=== PATIENT | male | born 1965 | race Caucasian/White ===

== ENCOUNTER 2017-02-21 20:11 | Emergency (ER) | payer SELFPAY ==
[2017-02-21 20:34] VITALS: BP 169/108
[2017-02-21] MEDS ORDERED: Sodium Chloride 0.9% 1,000 ML IV ONE (20:47)
[2017-02-21] MEDS ORDERED: Ondansetron 4 MG/2 ML SDV IVPUSH ONE (20:47)
[2017-02-21] MEDS ORDERED: Sodium Chloride 0.9% 10 ML Syringe FLUSH PRN (20:47)
[2017-02-21] MEDS ORDERED: Ketorolac 30 MG/ML SDV IVPUSH ONE (20:47)
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
[2017-02-21] MEDS ORDERED: Acetaminophen 325 MG Tab PO ONE (21:40)
[2017-02-21] MEDS ORDERED: methylPREDNISolone Sodium Succinate 125 MG/2 ML SDV IVPUSH ONE (22:22)
--- NOTE | 2017-02-22 07:07 | CT ---
CT lumbar spine Technique: Multiple axial sections were obtained from the bottom of T9 inferiorly through the L5-S1 disc space. Reconstructed sagittal and coronal images were reviewed. Comparison: No previous lumbar spine imaging. T10-T11: Mild disc space narrowing is seen. Mild diffuse posterior disc space narrowing seen throughout the lumbar spine. Mild endplate irregularity seen superiorly within L3 which appears old. Circumferential disc bulge noted at L2-L3 which causes minimal central canal stenosis. Slight circumferential disc bulge noted at L3-L4 causing minimal central canal stenosis. Slight circumferential disc bulge noted at L4-L5. Possible small disc herniation to the left of midline is seen at L4-L5. Vacuum phenomena noted within the L5-S1 disc. No fracture is seen. No discrete neural foraminal stenosis is seen where the nerve roots exit. Impression: 1. Possible small disc herniation at L4-L5 to the left of midline. 2. Slight circumferential disc bulging at L2-L3 and L3-L4 causing minimal central canal stenosis. 3. Other incidental findings. No acute abnormality is identified. Diagnostic code #3 I agree with preliminary report issued by [facility] ([facility] preliminary report dictated on 02/21/17, 11:11 PM Central Time)
--- NOTE | 2017-02-22 07:08 | CT ---
CT abdomen and pelvis Technique: Multiple axial sections were obtained from above the dome of the diaphragm inferiorly through the pubic symphysis. Intravenous and oral contrast not utilized. Study has been performed as a ureteral stone protocol. Findings: Kidneys show no abnormal calcifications. No ureteral dilatation or ureteral stone is seen. No bladder calculi are seen. Visualized lung bases are clear. Liver and spleen have a normal noncontrast CT appearance. Adrenal glands show no nodule. Pancreas is within normal limits. Aorta shows no aneurysmal dilatation. Mild atherosclerotic calcification noted within the aorta and iliac vessels. Gallbladder is contracted with no calcified gallstones. No retroperitoneal adenopathy or mesenteric abnormalities are seen. Appendix is seen which appears normal. No pelvic mass or adenopathy is seen. Mild diverticulosis noted within the sigmoid and descending colon without inflammatory change. Mild increased stool is noted within the colon. Bone window settings were reviewed which show mild scattered degenerative change throughout the spine. Impression: 1. Mild increased stool within the colon. Other incidental findings. 2. Nothing acute is identified on noncontrast CT study of the abdomen and pelvis performed as a ureteral stone protocol. Diagnostic code #2 I agree with preliminary report issued by [facility] ([facility] preliminary report dictated on 02/21/17, 11:05 PM Central Time)
== END 2017-02-21 22:40 | disposition home or self-care (01) ==
LOC: JD.ED 20:11
DX: M51.16 Intervertebral disc disorders with radiculopathy, lumbar region (principal); F17.210 Nicotine dependence, cigarettes, uncomplicated; Z79.899 Other long term (current) drug therapy
CPT/HCPCS: 36415; 72131; 74176; 80053; 81001; 85025; 86140; 96361; 96374; 96375; 99284; A9270; J1885; J2405; J2930; J7040; J7050